=== PATIENT | male | born 1955 | race Caucasian/White ===

== ENCOUNTER → 2016-07-30 | Outpatient (CLI) | payer BC ==
[2016-07-30 08:18] LABS: BUN/CREATININE RATIO 21 (0-10)
== END ==
LOC: LAB 07:20
PROVIDERS: Internal Medicine Interventional Cardiology
DX: I25.10 Atherosclerotic heart disease of native coronary artery without angina pectoris (principal); E78.5 Hyperlipidemia, unspecified; I10 Essential (primary) hypertension
CPT/HCPCS: 36415; 80053; 80061

== ENCOUNTER → 2021-11-05 | Outpatient (CLI) | payer BC ==
[2021-11-05 08:01] LABS: HEMOGLOBIN 15.2 gm/dl (14.0-17.5); RED BLOOD COUNT 4.96 M/UL (4.20-5.50); WHITE BLOOD COUNT 7.9 K/UL (4.5-11.0)
[2021-11-05 08:34] LABS: BUN/CREATININE RATIO 17 (0-10)
[2021-11-06 08:14] LABS: VITAMIN D, 25-HYDROXY 59.7 ng/mL (30.0-100.0)
[2021-11-06 09:14] LABS: SARS COV-2 SEMI-QUANT IGG >800.0 AU/mL (Neg <13.0); SARS COV-2 SPIKE AB INTERP Positive (.)
[2021-11-06 10:14] LABS: INSULIN 39.6 uIU/mL (2.6-24.9)
[2021-11-06 17:12] LABS: SARS-COV-2 SEMI-QUANT TOTAL AB See Dilution U/mL (Negative<0.8); SARS-COV-2 SPIKE AB DILUTION 21085 U/mL (Negative<0.8); SARS-COV-2 SPIKE AB INTERP Positive (.)
== END ==
LOC: LAB 07:23
PROVIDERS: Nurse Practitioner
DX: Z71.3 Dietary counseling and surveillance (principal); Z71.82 Exercise counseling; Z12.11 Encounter for screening for malignant neoplasm of colon; Z12.5 Encounter for screening for malignant neoplasm of prostate; Z51.81 Encounter for therapeutic drug level monitoring; I25.10 Atherosclerotic heart disease of native coronary artery without angina pectoris; I10 Essential (primary) hypertension; E55.9 Vitamin D deficiency, unspecified; E78.2 Mixed hyperlipidemia; E56.9 Vitamin deficiency, unspecified; R73.9 Hyperglycemia, unspecified; Z20.822 Contact with and (suspected) exposure to COVID-19; Z00.00 Encounter for general adult medical examination without abnormal findings
CPT/HCPCS: 36415; 80053; 80061; 82607; 83036; 84153; 84443; 85025; 86769